=== PATIENT | female | born 1990 | race Caucasian/White ===

== ENCOUNTER → 2016-09-18 | Outpatient (CLI) | payer BC ==
[~2016-09-18] MED LIST: APRI 0.15 MG-0.1 TAB PO; BIRTH CONTROL; CIPRO 500MG TA500 MG PO; FLAGYL500 MG PO; IMODIUM A-D2 MG PO; LEVSIN 0.10.125 MG/T PO; PEPCID40 MG PO; REGLAN 5MG T5 MG/TAB PO; TROKEND100; ZOFRAN 4MG T4 MG/TAB PO; ZOFRAN8 MG PO
== END ==
LOC: COL.RAD 14:39
DX: R51 Headache (principal); Z80.8 Family history of malignant neoplasm of other organs or systems

== ENCOUNTER → 2016-09-21 | Outpatient (CLI) | payer BC ==
[2016-09-21 13:19] LABS: BASO % 0.4 % (0.0-2.0); EOS % 0.3 % (0-4.0); GRAN # 4.7 (1.4-6.5); GRAN % 64.2 % (42.2-75.2); HEMATOCRIT 41.3 % (37.0-47.0); HEMOGLOBIN 13.6 g/dl (12.5-16.0); LYMPH # 2.2 (1.2-3.4); LYMPH % 30.9 % (20.0-51.0); MEAN CELL VOLUME 84 fl (80.0-100.0); MEAN CORPUSCULAR HEMOGLOBIN 28 pg (27.0-31.0); MEAN CORPUSCULAR HGB CONC 33 g/dl (33.0-37.0); MEAN PLATELET VOLUME 11.2 fl (7.4-10.4); MONO # 0.3 (0.1-0.6); MONO % 3.9 % (1.7-9.3); PLATELET COUNT 264 K/mm3 (130-400); RED BLOOD COUNT 4.92 M/mm3 (4.10-5.30); REDCELL DISTRIBUTION WIDTH-CV 13.2 % (11.5-14.5); WHITE BLOOD COUNT 7.2 K/mm3 (4.8-10.8)
[2016-09-21 13:29] LABS: CALCIUM 9.6 mg/dL (8.4-10.2); CREATININE, serum 0.74 mg/dL (0.52-1.25); POTASSIUM 4.3 mmol/L (3.4-5.0)
[2016-09-21 13:59] LABS: THYROID STIMULATING HORMONE 1.39 uIU/mL (0.465-4.680)
== END ==
LOC: COL.RAD 11:51
PROVIDERS: Physician Assistant
DX: R51 Headache (principal); R53.1 Weakness; Z80.8 Family history of malignant neoplasm of other organs or systems
CPT/HCPCS: A9585

== ENCOUNTER 2016-10-27 19:09 | Emergency (ER) | payer BC ==
[~2016-10-27] VITALS: Ht 177.8 cm; Wt 77.3 kg
[2016-10-27] MEDS ORDERED: BIRTH CONTROL (19:25)
[2016-10-27] MEDS ORDERED: TROKEND100 (19:25)
[2016-10-27] MEDS ORDERED: ZOFRAN 4MG T4 MG/TAB PO (19:26)
[2016-10-27] MEDS ORDERED: CIPRO 500MG TA500 MG PO (19:26)
[2016-10-27] MEDS ORDERED: LEVSIN 0.10.125 MG/T PO (19:26)
[2016-10-27 21:59] LABS: BASO % 0.5 % (0.0-2.0); EOS % 0.2 % (0-4.0); GRAN # 3.1 (1.4-6.5); GRAN % 48.4 % (42.2-75.2); HEMATOCRIT 40.9 % (37.0-47.0); HEMOGLOBIN 13.5 g/dl (12.5-16.0); LYMPH # 2.9 (1.2-3.4); LYMPH % 46.5 % (20.0-51.0); MEAN CELL VOLUME 83 fl (80.0-100.0); MEAN CORPUSCULAR HEMOGLOBIN 27 pg (27.0-31.0); MEAN CORPUSCULAR HGB CONC 33 g/dl (33.0-37.0); MEAN PLATELET VOLUME 11.3 fl (7.4-10.4); MONO # 0.3 (0.1-0.6); MONO % 4.4 % (1.7-9.3); PLATELET COUNT 251 K/mm3 (130-400); RED BLOOD COUNT 4.96 M/mm3 (4.10-5.30); REDCELL DISTRIBUTION WIDTH-CV 13.8 % (11.5-14.5); WHITE BLOOD COUNT 6.3 K/mm3 (4.8-10.8)
[2016-10-27 22:09] LABS: ADJUSTED CALCIUM 9.2 mg/dL (8.4-10.2); ALBUMIN 4.2 gm/dL (3.5-5.0); BILIRUBIN,TOTAL 0.5 mg/dL (0.0-1.0); CALCIUM 9.4 mg/dL (8.4-10.2); CREATININE, serum 0.82 mg/dL (0.52-1.25); POTASSIUM 3.8 mmol/L (3.4-5.0); TOTAL PROTEIN 7.6 gm/dL (6.4-8.2)
[2016-10-27 23:03] LABS: PH 5 (5-8); SQUAMOUS EPITHELIAL 0-2 /hpf; URINE APPEARANCE Clear; URINE BACTERIA Moderate /hpf; URINE BILIRUBIN Negative (NEGATIVE); URINE BLOOD Negative (NEGATIVE); URINE COLOR Yellow; URINE GLUCOSE Negative (NEGATIVE); URINE KETONE Trace (NEGATIVE); URINE RBC 0-2 /hpf; URINE UROBILINOGEN Negative (NEGATIVE); URINE WBC 0-2 /hpf
[2016-10-27] MEDS ORDERED: PEPCID40 MG PO (23:45)
[2016-10-27] MEDS ORDERED: FLAGYL500 MG PO (23:45)
[2016-10-28 00:21] VITALS: BP 126/76; PULSE 86; TEMP 98.7
[2016-10-29] MEDS ORDERED: APRI 0.15 MG-0.1 TAB PO (20:40)
[2016-10-29] MEDS ORDERED: ZOFRAN8 MG PO (20:40)
[2016-10-29] MEDS ORDERED: IMODIUM A-D2 MG PO (22:11)
[2016-10-29] MEDS ORDERED: REGLAN 5MG T5 MG/TAB PO (22:11)
== END 2016-10-28 00:23 | disposition home or self-care (01) ==
LOC: COL.ER 19:09
PROVIDERS: Emergency Medicine
DX: R10.32 Left lower quadrant pain (principal); R19.7 Diarrhea, unspecified; R11.2 Nausea with vomiting, unspecified; G43.909 Migraine, unspecified, not intractable, without status migrainosus
CPT/HCPCS: J2405; J7030

== ENCOUNTER 2016-10-29 19:49 | Emergency (ER) | payer BC ==
[~2016-10-29] VITALS: Ht 177.8 cm; Wt 76.4 kg
[~2016-10-29 19:49] MED LIST changes: -APRI 0.15 MG-0.1 TAB PO; -IMODIUM A-D2 MG PO; -REGLAN 5MG T5 MG/TAB PO; -ZOFRAN8 MG PO
[2016-10-29 19:53] VITALS: TEMP 99.5
[2016-10-29 20:32] LABS: PH 6 (5-8); SQUAMOUS EPITHELIAL 0-2 /hpf; URINE APPEARANCE Clear; URINE BACTERIA Rare /hpf; URINE BILIRUBIN Negative (NEGATIVE); URINE BLOOD 3+ (NEGATIVE); URINE COLOR Yellow; URINE GLUCOSE Negative (NEGATIVE); URINE KETONE Trace (NEGATIVE); URINE UROBILINOGEN Negative (NEGATIVE); URINE WBC 0-2 /hpf
[2016-10-29 20:40] LABS: BASO % 0.5 % (0.0-2.0); EOS % 0.1 % (0-4.0); GRAN # 3.8 (1.4-6.5); GRAN % 51.4 % (42.2-75.2); HEMOGLOBIN 13.9 g/dl (12.5-16.0); LYMPH # 3.2 (1.2-3.4); LYMPH % 43.2 % (20.0-51.0); MEAN CELL VOLUME 83 fl (80.0-100.0); MEAN CORPUSCULAR HEMOGLOBIN 27 pg (27.0-31.0); MEAN CORPUSCULAR HGB CONC 33 g/dl (33.0-37.0); MEAN PLATELET VOLUME 10.9 fl (7.4-10.4); MONO # 0.3 (0.1-0.6); MONO % 4.5 % (1.7-9.3); PLATELET COUNT 257 K/mm3 (130-400); RED BLOOD COUNT 5.07 M/mm3 (4.10-5.30); REDCELL DISTRIBUTION WIDTH-CV 13.8 % (11.5-14.5); WHITE BLOOD COUNT 7.3 K/mm3 (4.8-10.8)
[2016-10-29] MEDS ORDERED: APRI 0.15 MG-0.1 TAB PO (20:40)
[2016-10-29] MEDS ORDERED: ZOFRAN8 MG PO (20:40)
[2016-10-29 20:54] LABS: ADJUSTED CALCIUM 8.9 mg/dL (8.4-10.2); ALANINE AMINOTRANSFERASE 21 U/L (9-52); ALBUMIN 4.4 gm/dL (3.5-5.0); ALKALINE PHOSPHATASE 52 U/L (50-136); ANION GAP 13 mmol/L (7-16); BILIRUBIN,TOTAL 0.7 mg/dL (0.0-1.0); BLOOD UREA NITROGEN 5 mg/dL (7-17); C-REACTIVE PROTEIN < 0.5 mg/dL (0.0-0.9); CALCIUM 9.2 mg/dL (8.4-10.2); CARBON DIOXIDE 21 mmol/L (22-30); CHLORIDE 104 mmol/L (98-107); CREATININE, serum 0.89 mg/dL (0.52-1.25); GLUCOSE 84 mg/dL (74-106); LIPASE 86 U/L (23-300); POTASSIUM 3.3 mmol/L (3.4-5.0); SODIUM 138 mmol/L (137-145); TOTAL PROTEIN 7.8 gm/dL (6.4-8.2)
[2016-10-29] MEDS ORDERED: IMODIUM A-D2 MG PO (22:11)
[2016-10-29] MEDS ORDERED: REGLAN 5MG T5 MG/TAB PO (22:11)
[2016-10-29 22:43] VITALS: BP 108/77; PULSE 63
== END 2016-10-29 22:45 | disposition home or self-care (01) ==
LOC: COL.ER 19:49
PROVIDERS: Emergency Medicine
DX: K52.9 Noninfective gastroenteritis and colitis, unspecified (principal)
CPT/HCPCS: J1885; J2405; J2765; J7030; Q9967

== ENCOUNTER 2016-11-04 14:20 | Emergency (ER) | payer BC ==
[~2016-11-04] VITALS: Ht 177.8 cm; Wt 75.0 kg
[~2016-11-04 14:20] MED LIST changes: +APRI 0.15 MG-0.1 TAB PO; +IMODIUM A-D2 MG PO; +REGLAN 5MG T5 MG/TAB PO; +ZOFRAN8 MG PO
[2016-11-04 14:22] VITALS: TEMP 98.1
[2016-11-04 15:37] LABS: BASO % 0.5 % (0.0-2.0); GRAN # 4.3 (1.4-6.5); GRAN % 67.2 % (42.2-75.2); HEMOGLOBIN 14.7 g/dl (12.5-16.0); LYMPH # 1.8 (1.2-3.4); LYMPH % 28.4 % (20.0-51.0); MEAN CELL VOLUME 83 fl (80.0-100.0); MEAN CORPUSCULAR HEMOGLOBIN 28 pg (27.0-31.0); MEAN CORPUSCULAR HGB CONC 33 g/dl (33.0-37.0); MEAN PLATELET VOLUME 11.7 fl (7.4-10.4); MONO # 0.2 (0.1-0.6); MONO % 3.6 % (1.7-9.3); PLATELET COUNT 245 K/mm3 (130-400); REDCELL DISTRIBUTION WIDTH-CV 13.5 % (11.5-14.5); WHITE BLOOD COUNT 6.3 K/mm3 (4.8-10.8)
[2016-11-04 15:47] LABS: ADJUSTED CALCIUM 9.1 mg/dL (8.4-10.2); ALBUMIN 4.6 gm/dL (3.5-5.0); BILIRUBIN,TOTAL 0.8 mg/dL (0.0-1.0); CALCIUM 9.6 mg/dL (8.4-10.2); CREATININE, serum 0.82 mg/dL (0.52-1.25); POTASSIUM 3.8 mmol/L (3.4-5.0)
[2016-11-04 16:53] LABS: PH 6 (5-8); SQUAMOUS EPITHELIAL 0-2 /hpf; URINE APPEARANCE Clear; URINE BACTERIA Occasional /hpf; URINE BILIRUBIN Negative (NEGATIVE); URINE BLOOD Negative (NEGATIVE); URINE COLOR Straw; URINE GLUCOSE Negative (NEGATIVE); URINE KETONE 2+ (NEGATIVE); URINE RBC 0-2 /hpf; URINE UROBILINOGEN Negative (NEGATIVE); URINE WBC 0-2 /hpf
[2016-11-04 18:15] VITALS: BP 105/72; PULSE 90
== END 2016-11-04 18:21 | disposition home or self-care (01) ==
LOC: COL.ER 14:20
PROVIDERS: Emergency Medicine
DX: R10.13 Epigastric pain (principal); K27.9 Peptic ulcer, site unspecified, unspecified as acute or chronic, without hemorrhage or perforation; K21.9 Gastro-esophageal reflux disease without esophagitis; G43.909 Migraine, unspecified, not intractable, without status migrainosus
CPT/HCPCS: C9113; J2765; J3010; J7030; J7120

== ENCOUNTER 2016-11-05 12:57 | Day surgery (SDC) | payer BC ==
[~2016-11-05] VITALS: Ht 177.8 cm; Wt 74.5 kg
[2016-11-05 13:17] VITALS: BP 121/86; PULSE 111; TEMP 99
[2016-11-05 14:40] VITALS: BP 121/82; PULSE 94; TEMP 98.5
[2016-11-05 14:55] VITALS: BP 111/82; PULSE 87
[2016-11-05 15:10] VITALS: BP 117/82; PULSE 91
[2016-11-05 15:11] VITALS: BP 116/78; PULSE 96
== END 2016-11-05 15:25 | disposition home or self-care (01) ==
LOC: SDCO 12:57
DX: K21.0 Gastro-esophageal reflux disease with esophagitis (principal); K30 Functional dyspepsia; R19.7 Diarrhea, unspecified
CPT/HCPCS: J2250; J3010

== ENCOUNTER → 2016-11-10 | Outpatient (CLI) | payer BC | LOC: COL.RAD 08:13 | DX: K52.9 Noninfective gastroenteritis and colitis, unspecified (principal) | CPT/HCPCS: A9541 ==

== ENCOUNTER 2017-04-14 14:27 | Emergency (ER) | payer BC ==
[~2017-04-14] VITALS: Ht 177.8 cm; Wt 76.4 kg
[~2017-04-14 14:27] MED LIST changes: +ANTIVERT 25MG25 MG PO; +MOBIC 7.5MG7.5 MG PO; +PHENERGAN 25 TA25 MG PO; +PRILOSEC10 MG PO; +VALIUM 2MG T2 MG/TAB PO
[2017-04-14 14:29] VITALS: TEMP 97
[2017-04-14] MEDS ORDERED: DESYREL 50MG50 MG PO (14:31)
[2017-04-14] MEDS ORDERED: ZOLOFT 50MG50 MG PO (14:32)
[2017-04-14 14:59] LABS: HEMOGLOBIN 13.7 g/dl (12.5-16.0); MEAN CELL VOLUME 81 fl (80.0-100.0); MEAN CORPUSCULAR HEMOGLOBIN 27 pg (27.0-31.0); MEAN CORPUSCULAR HGB CONC 33 g/dl (33.0-37.0); MEAN PLATELET VOLUME 10.8 fl (7.4-10.4); PLATELET COUNT 270 K/mm3 (130-400); RED BLOOD COUNT 5.16 M/mm3 (4.10-5.30); REDCELL DISTRIBUTION WIDTH-CV 13.7 % (11.5-14.5)
[2017-04-14 15:19] LABS: ALBUMIN 4.8 gm/dL (3.5-5.0); BILIRUBIN,TOTAL 0.5 mg/dL (0.0-1.0); C-REACTIVE PROTEIN 0.8 mg/dL (0.0-0.9); CALCIUM 9.6 mg/dL (8.4-10.2); CREATININE, serum 0.75 mg/dL (0.52-1.25); POTASSIUM 3.8 mmol/L (3.4-5.0); TOTAL PROTEIN 8.4 gm/dL (6.4-8.2)
[2017-04-14 16:37] LABS: COLLECTION METHOD CLEAN CATCH
[2017-04-14 16:52] LABS: MUCOUS Present /lpf; SQUAMOUS EPITHELIAL 0-2 /hpf; URINE BACTERIA Rare /hpf; URINE RBC 0-2 /hpf
[2017-04-14 16:53] LABS: PH 5 (5-8); URINE APPEARANCE Clear; URINE BILIRUBIN Negative (NEGATIVE); URINE BLOOD Negative (NEGATIVE); URINE COLOR Yellow; URINE GLUCOSE Negative (NEGATIVE); URINE KETONE Negative (NEGATIVE); URINE LEUKOCYTE ESTERASE Negative (NEGATIVE); URINE NITRATE Negative (NEGATIVE); URINE PROTEIN(semi-quant) Negative (NEGATIVE); URINE UROBILINOGEN Negative (NEGATIVE)
[2017-04-14] MEDS ORDERED: PERCOCET 325 MG1 TA2 PO (19:28)
[2017-04-14] MEDS ORDERED: PHENERGAN 25 TA25 MG PO (19:28)
[2017-04-14] MEDS ORDERED: ZOFRAN ODT4 MG PO (19:28)
[2017-04-14 20:26] VITALS: BP 126/80; PULSE 88
== END 2017-04-14 20:33 | disposition home or self-care (01) ==
LOC: COL.ER 14:27
PROVIDERS: Nurse Practitioner
DX: R10.31 Right lower quadrant pain (principal); R19.7 Diarrhea, unspecified; K21.9 Gastro-esophageal reflux disease without esophagitis
CPT/HCPCS: J1170; J2270; J2405; J2550; J3010; J7030; Q9967

== ENCOUNTER 2018-09-14 20:00 | Emergency (ER) | payer BC ==
[~2018-09-14] VITALS: Ht 177.8 cm; Wt 81.8 kg
[~2018-09-14 20:00] MED LIST changes: +DESYREL 50MG50 MG PO; +PERCOCET 325 MG1 TA2 PO; +ZOFRAN ODT4 MG PO; +ZOLOFT 50MG50 MG PO
[2018-09-14 20:06] VITALS: TEMP 99.8
[2018-09-14] MEDS ORDERED: PROFE180 MG PO (20:39)
[2018-09-14] MEDS ORDERED: NORCO 325 MG-51 TAB PO (22:57)
[2018-09-14 23:42] VITALS: BP 121/98; PULSE 83
== END 2018-09-14 23:45 | disposition home or self-care (01) ==
LOC: COL.ER 20:00
PROVIDERS: Emergency Medicine
DX: S43.401A Unspecified sprain of right shoulder joint, initial encounter (principal); S63.501A Unspecified sprain of right wrist, initial encounter; W50.0XXA Accidental hit or strike by another person, initial encounter; X50.1XXA Overexertion from prolonged static or awkward postures, initial encounter; Y93.68 Activity, volleyball (beach) (court)
CPT/HCPCS: J1170; J1885; J2250; J3010; Q4021

== ENCOUNTER → 2019-02-08 | Outpatient (CLI) | payer BC ==
[~2019-02-08] MED LIST changes: +NORCO 325 MG-51 TAB PO; +PROFE180 MG PO
== END ==
LOC: COL.RAD 13:48
DX: M25.511 Pain in right shoulder (principal); Z98.890 Other specified postprocedural states
CPT/HCPCS: A9585; Q9967